=== PATIENT | male | born 1945 | race Two or more races ===

== ENCOUNTER 2023-01-24 07:47 | Outpatient (CLI) | payer OTHER | END 2023-01-24 07:50 | disposition home or self-care (01) | LOC: NUCLEAR 07:47 | PROVIDERS: ATTEND Internal Medicine | DX: I11.9 Hypertensive heart disease without heart failure (principal); R06.9 Unspecified abnormalities of breathing; E78.2 Mixed hyperlipidemia; Z95.0 Presence of cardiac pacemaker | CPT/HCPCS: 78452; 93017; A9500 ==

== ENCOUNTER 2025-02-04 07:12 | Outpatient (CLI) | payer OTHER | END 2025-02-04 07:13 | disposition home or self-care (01) | LOC: NUCLEAR 07:12 | PROVIDERS: ATTEND Internal Medicine | DX: I20.9 Angina pectoris, unspecified (principal) | CPT/HCPCS: 78452; 93017; A9500 ==